=== PATIENT | female | born 1995 | race Caucasian/White ===

== ENCOUNTER 2023-11-07 15:34 | Outpatient (RCR) | payer OTHER, SELFPAY ==
[2023-11-07] MEDS: RHO(D) IMMUNE GLOBULIN 300 MCG/2 ML SYRINGE IM (18:23)
== END 2024-02-05 23:59 | disposition home or self-care (01) ==
LOC: ANHLAB 15:34
PROVIDERS: Visit Provider Obstetrics & Gynecology
DX: Z29.13 Encounter for prophylactic Rho(D) immune globulin (principal); O36.0190 Maternal care for anti-D [Rh] antibodies, unspecified trimester, not applicable or unspecified; Z3A.00 Weeks of gestation of pregnancy not specified
CPT/HCPCS: 36415; 85461; 86850; 86900; 86901; 90384; 96372; J2790

== ENCOUNTER 2024-01-15 06:06 | Inpatient (IN) | payer OTHER, SELFPAY ==
[2024-01-15] VITALS (240 sets, daily range): BP systolic 97–239; BP diastolic 57–192; PULSE 61–267; RESP 16–18; TEMP 36.4–37.1; O2SAT 77–100; BMI 36.3
[2024-01-15 06:48] LABS: Basophils Absolute Auto 0.1 K/mm3 (0.0-0.1); Basophils Percent Auto 0.5 % (0.2-1.2); Eosinophils Absolute Auto 0.1 K/mm3 (0-0.3); Eosinophils Percent Auto 0.6 % (0-4.4); Hematocrit 31.1 % (37.0-47.0); Hemoglobin 9.4 g/dL (12.0-15.0); Immature Granulocyte Absolute 0.08 K/mm3 (0.00-0.031); Immature Granulocyte Percent A 0.9 % (0-0.5); Lymphocytes Absolute Auto 1.74 K/mm3 (0.9-3.2); Lymphocytes Percent Auto 18.6 % (18.3-44.2); Mean Corpuscular HGB Conc 30.2 g/dl (32-36); Mean Corpuscular Hemoglobin 21.5 pg (26-34); Mean Corpuscular Volume 71.2 fl (80-100); Mean Platelet Volume 9.5 fl (7.4-10.4); Monocytes Absolute Auto 0.5 K/mm3 (0.1-0.6); Monocytes Percent Auto 5.7 % (2.6-8.5); Neutrophils Absolute Auto 6.9 K/mm3 (1.3-6.7); Neutrophils Percent Auto 73.7 % (45.5-73.1); Platelet Count Result 347 k/mm3 (150-375); Red Blood Count 4.37 M/mm3 (4.2-5.4); White Blood Count 9.4 K/mm3 (4.5-10.0)
--- NOTE | 2024-01-15 06:48 | LDADM ---
This patient, Parul Ruby, was admitted to Labor/Delivery/Recovery 108 on 01/15/24 at 06:06. Plans for labor, pain management and were discussed with patient. Patient/family oriented to hospital policies and general routines including ID bracelet, bed and alarms, visiting hours, pain management, procedures, bathroom and other care routines, personal items, smoking policy, room service/diet and guest tray routines, infant security routines, and visiting hours. Patient/Family are encouraged to report perceived risks to care and to ask questions if they do not understand what they are told or what they should do. See OBIX for further documentation.
--- NOTE | 2024-01-15 07:11 | WPDANESEPP ---
Anes - Eval Pre Procedure Procedure: labor epidural Date/Time: 01/15/24 07:11 Surgeon: lana wilson Preop Diagnosis: pain during labor Pre Op Diagnosis: IOL Patient Data Age: 28 Gender: F Height: 1.68 m Weight: 102 kg Last Vital Signs Temp 36.6 C 01/15/24 06:47 Pulse 91 01/15/24 06:47 Resp 18 01/15/24 06:47 BP 127/78 01/15/24 06:47 O2 Del Method Room Air 01/15/24 06:47 Allergies Allergy/AdvReac Type Severity Reaction Status Date / Time No Known Allergies Allergy Verified 12/23/23 13:41 Home Medications Medication Instructions Recorded Confirmed Type vits no.126-ferrous fum 1 tablet PO DAILY 12/23/23 12/23/23 History 28 mg iron-folic acid 800 mcg tablet (Classic ) Laboratory Tests 01/15/24 06:16 WBC Pending RBC Pending Hgb Pending Hct Pending MCV Pending MCH Pending MCHC Pending RDW Pending Plt Count Pending MPV Pending Immature Gran % (Auto) Pending Neut % (Auto) Pending Lymph % (Auto) Pending [place] % (Auto) Pending Eos % (Auto) Pending Baso % (Auto) Pending Lymph # (Auto) Pending [place] # (Auto) Pending Eos # (Auto) Pending Baso # (Auto) Pending Abs Immat Gran (auto) Pending Absolute Neuts (auto) Pending Absolute Nucleated RBC Pending Nucleated RBC % Pending RPR Pending HIV 1&2 Ab/P24 Ag 4thGn Pending Patient hx anesthesia problems: none Family hx anesthesia problems: none Results Review: All pre-operative results and documents have been reviewed as part of the pre-operative evaluation. [facility] Past Medical History Medical History (Updated 01/15/24 @ 07:12 by Leanne Mayorga CRNA) IUP (intrauterine ), incidental Obesity (BMI 30-39.9) Family History Family History (Updated 12/23/23 @ 13:49 by Makenna Sethi RN) Other No pertinent family history Social History Social History Smoking status: Never smoker Substance use: never Do You Feel Safe in your Home?: Yes Lack of Transportation: No Lack of Food: Never True Current Housing: I Have Housing Concerned About Future Housing: No Difficulty Paying Gas/Electric Bills: No Difficulty Paying for Meds: No Currently Unemployed: No Education: Associate Degree Difficulty w/ Childcare or Family Care: No Spiritual care concerns: No Exam Day of Procedure 01/15/24 07:11
[2024-01-15 07:14] LABS: Hypochromasia 1+; Platelet Estimate Adequate (Adequate)
[2024-01-15 07:15] LABS: Anisocytosis 1+; Microcytosis 1+ (NORMAL); Schistocytes None Seen
--- NOTE | 2024-01-15 07:38 | PM.IMHP ---
H&P: HPI History of Present Illness Date/Time: 01/15/24 07:38 Chief Complaint: elevated blood pressure at term Narrative: 28-year-old 1 para 0 whose last menstrual period with a level in , EDC is 01/14/2024, confirmed by 10 week ultrasound presents at 40 weeks gestation for induction of labor secondary to elevated blood pressure. She is negative for group B strep in her PIH labs are normal. [facility] Past Medical History Medical History IUP (intrauterine ), incidental Obesity (BMI 30-39.9) Family History Family History Other No pertinent family history Social History Social History Smoking status: Never smoker Substance use: never Do You Feel Safe in your Home?: Yes Lack of Transportation: No Lack of Food: Never True Current Housing: I Have Housing Concerned About Future Housing: No Difficulty Paying Gas/Electric Bills: No Difficulty Paying for Meds: No Currently Unemployed: No Education: Associate Degree Difficulty w/ Childcare or Family Care: No Spiritual care concerns: No Meds Home Medications and Allergies Home Medications Medication Instructions Recorded Confirmed Type vits no.126-ferrous fum 1 tablet PO DAILY 12/23/23 12/23/23 History 28 mg iron-folic acid 800 mcg tablet (Classic ) Allergies Allergy/AdvReac Type Severity Reaction Status Date / Time No Known Allergies Allergy Verified 12/23/23 13:41 Vital Signs Vital Signs - 24 hr 01/15/24 06:47 01/15/24 06:47 Temperature 97.8 F Pulse Rate 91 Respiratory Rate 18 Blood Pressure 127/78 Oxygen Delivery Room Air Exam Const: General: cooperative, healthy appearing and comfortable Nutritional Appearance: overweight Orientation/consciousness: oriented to person, oriented to place and oriented to time HENMT: Head: normal to inspection Resp: Effort & Inspection: normal respiratory effort Cardio: Rate: regular rate Rhythm: regular rhythm Heart sounds: S1 normal heart sound present and S2 normal heart sound present GI: Inspection: normal to inspection ( Gravid soft uterus) : Speculum Exam - Vagina: normal appearance of the vagina Speculum Exam - Cervix: normal appearance of the cervix ( cervix 1 and thick. Attempted AROM. FHTs reassuring) H&P: Results Labs Labs: Short CBC 01/15/24 Range/Units 06:16 WBC 9.4 (4.5-10.0) K/mm3 Hgb 9.4 L (12.0-15.0) g/dL Hct 31.1 L (37.0-47.0) % Plt Count 347 (150-375) k/mm3 Assessment and Plan Assessment and plan (1) IUP (intrauterine ), incidental: Code(s): Z33.1 - state, incidental Status: Acute (2) Gestational hypertension: Code(s): O13.9 - Gestational [-induced] hypertension without significant proteinuria, unspecified trimester Status: Acute Assessment and Plan: medical induction of labor. Spontaneous vaginal delivery is expected. She has an epidural candidate. PIH labs are normal
[2024-01-15 07:39] LABS: HIV 1/2 Ab P24 Ag Result Negative (Negative)
[2024-01-15] MEDS: OXYTOCIN 30 UNITS/NS 500 ML 30 UNITS/500 ML BAG 6 UNITS IV CONT (07:42)
[2024-01-15] MEDS: LACTATED RINGERS 1,000 ML 125 ML IV CONT ×4 (07:42→22:53)
[2024-01-15 10:32] LABS: Rapid Plasma Reagin Non-Reactive (NonReactive)
--- NOTE | 2024-01-15 12:21 | PM.OBPNLAB ---
Pain Control Date/time seen: 01/15/24 12:21 Pain control: tolerating well and epidural Pelvic Exam Dilation (cm): 3 Effacement (%): 50 station: -2 Amniotic membrane status: Leaking Comments: bp ok Contractions Monitor mode: External
--- NOTE | 2024-01-15 16:18 | PM.OBPNLAB ---
Pain Control Date/time seen: 01/15/24 16:18 Pelvic Exam Dilation (cm): 5 Effacement (%): 70 station: -2 Amniotic membrane status: Leaking Contractions Monitor mode: Internal
[2024-01-15] MEDS: CALCIUM CARBONATE (TUMS) 500 MG (200 MG ELEMENTAL) PO (19:00)
[2024-01-15] MEDS: ONDANSETRON INJ 4 MG/2 ML VIAL IV PUSH (20:10)
[2024-01-15] MEDS: FAMOTIDINE 20 MG/2 ML VIAL IV PUSH (22:49)
[2024-01-16] VITALS (59 sets, daily range): BP systolic 92–134; BP diastolic 58–110; PULSE 66–139; RESP 16–20; TEMP 36.5–37.6; O2SAT 80–100
--- NOTE | 2024-01-16 01:15 | PM.OBPRVD ---
OB - Vaginal Delivery Note Procedure Delivery date: 01/16/24 Events: Gestational Hypertension Induction method: AROM Delivery augmentation: Pitocin Delivery monitor: External FHT and Internal FHT Route of delivery: Episiotomy description: None Laceration Description: None Quantitative Blood Loss (ml): 61 Anesthesia type: Epidural Narrative: Patient was admitted for induction of labor in 01/15/2024. His slow 1st stage of labor got to complete daily the she did have a IUPC place with the need to if she had thick meconium. Which she was complete she pushed delivered head spontaneously in the SANTOSH position. Anterior posterior shoulder delivered spontaneously. Cord clamped x2 and cut. Infant passed off the table given Apgars of 8 [id number]. Cord blood was drawn. Placenta delivered intact spontaneously. Twenty of Pitocin placed IV to help firm the uterus. A prospective the vagina and no tears were seen. All sponge, needle, instrument counts were correct. There were no immediate complications [place] Baby Date of : 01/16/24 Time of : 01:04 gender: Male presentation: vertex position: Right Occiput Anterior Placenta delivery description: Spontaneous Cord Vessel Description: 3 Vessels score one minute: 8 score five minutes: 9
--- NOTE | 2024-01-16 01:18 | PM.DS ---
DS: Admitting Diagnosis Discharge Date 01/17/24 <Deepak Carey MD - Last Filed: 01/17/24 12:03> Admitting Diagnosis term /gestational hypertension <Ramakrishna Padron MD - Last Filed: 01/16/24 01:20> DS: Discharge Diagnosis Discharge Diagnosis (1) Gestational hypertension: Code(s): O13.9 - Gestational [-induced] hypertension without significant proteinuria, unspecified trimester <Ramakrishna Padron MD - Last Filed: 01/16/24 01:20> Status: Acute <Ramakrishna Padron MD - Last Filed: 01/16/24 01:20> (2) IUP (intrauterine ), incidental: Code(s): Z33.1 - state, incidental <Ramakrishna Padron MD - Last Filed: 01/16/24 01:20> Status: Acute <Ramakrishna Padron MD - Last Filed: 01/16/24 01:20> DS: Summary Hospital Course Reason for hospitalization: patient was admitted on 01/15/2024 for induction of labor secondary to elevated blood pressures at term. She underwent spontaneous vaginal delivery in the early a.m. of 01/16/2024. <Ramakrishna Padron MD - Last Filed: 01/16/24 01:20> Hospital Course: Patient's hospital course was remarkable. She remained afebrile. She was up, voiding the difficulty, eating regular diet, ambulating, generally without complaints. <Ramakrishna Padron MD - Last Filed: 01/16/24 01:20> Time Spent with Patient Time attestation: Total time spent providing and/or coordinating discharge services: <Ramakrishna Padron MD - Last Filed: 01/16/24 01:20> Exam Const: General: cooperative, healthy appearing and comfortable <Ramakrishna Padron MD - Last Filed: 01/16/24 01:20> Nutritional Appearance: average body habitus <Ramakrishna Padron MD - Last Filed: 01/16/24 01:20> Orientation/consciousness: oriented to person, oriented to place and oriented to time <Ramakrishna Padron MD - Last Filed: 01/16/24 01:20> Resp: Effort & Inspection: normal respiratory effort <Ramakrishna Padron MD - Last Filed: 01/16/24 01:20> Cardio: Rate: regular rate <Ramakrishna Padron MD - Last Filed: 01/16/24 01:20> Rhythm: regular rhythm <Ramakrishna Padron MD - Last Filed: 01/16/24 01:20> Heart sounds: S1 normal heart sound present and S2 normal heart sound present <aRmakrishna Padron MD - Last Filed: 01/16/24 01:20> GI: Inspection: normal to inspection <Ramakrishna Padron MD - Last Filed: 01/16/24 01:20> DS: Data Data Completed and Pending Labs on day of discharge: Labs from last 24 hours 01/15/24 06:16 WBC 9.4 RBC 4.37 Hgb 9.4 L Hct 31.1 L MCV 71.2 L MCH 21.5 L MCHC 30.2 L RDW 17.0 H Plt Count 347 MPV 9.5 Immature Gran % (Auto) 0.9 H Neut % (Auto) 73.7 H Lymph % (Auto) 18.6 [place] % (Auto) 5.7 Eos % (Auto) 0.6 Baso % (Auto) 0.5 Lymph # (Auto) 1.74 [place] # (Auto) 0.5 Eos # (Auto) 0.1 Baso # (Auto) 0.1 Abs Immat Gran (auto) 0.08 H Absolute Neuts (auto) 6.9 H Absolute Nucleated RBC 0.000 Nucleated RBC % 0.0 Platelet Estimate Adequate Hypochromasia 1+ Anisocytosis 1+ Microcytosis 1+ Schistocytes None seen RPR Non-reactive HIV 1&2 Ab/P24 Ag 4thGn Negative Blood Type O Negative Antibody Screen Negative <Ramakrishna Padron MD - Last Filed: 01/16/24 01:20> Discharge Plan Discharge Attending physician on discharge: Ramakrishna Augustin <Ramakrishna Padron MD - Last Filed: 01/16/24 01:20> Ramakrishna Augustin <Deepak Carey MD - Last Filed: 01/17/24 12:03> Discharging Clinician: Ramakrishna Augustin <Ramakrishna Padron MD - Last Filed: 01/16/24 01:20> Ramakrishna Augustin. <Deepak Carey MD - Last Filed: 01/17/24 12:03> Patient Disposition: Home, Self-Care <Ramakrishna Padron MD - Last Filed: 01/16/24 01:20> Activity: may shower, no straining, may drive after 2 weeks and pelvic rest <Ramakrishna Padron MD - Last Filed: 01/16/24 01:20> may shower
[2024-01-16] MEDS: OXYTOCIN 30 UNITS/NS 500 ML 30 UNITS/500 ML BAG 125 UNITS IV CONT (01:32)
[2024-01-16] MEDS: ACETAMINOPHEN 325 MG TABLET 650 MG PO ×2 (02:21→17:17)
[2024-01-16] MEDS: IBUPROFEN 600 MG TABLET PO ×3 (02:21→20:53)
--- NOTE | 2024-01-16 03:24 | OBPPTRN ---
Patient transferred to post room #278 via wheelchair. Support person present. Oriented to unit, room, information board, rooming in, admission packet and security measures. Patient verbalizes understanding.
--- NOTE | 2024-01-16 08:45 | PC.NURSE ---
Called to patient room to assist with . Baby was just circumcised and is sleepy. We unwrapped him and tried to wake him. We placed him skin to skin in football hold. He did open his mouth a few times but never latched successfully. Encouraged mother to try again in half an hour. She can keep him skin to skin or wrap him and let him sleep in the crib. Mother agrees and will call for further assistance as needed. Reported to primary RN.
[2024-01-16] MEDS: POLYSACCHARIDE IRON COMPLEX 150 MG CAPSULE PO (08:52)
[2024-01-16] MEDS: MULTIVIT/MIN/PREN/FOL AC/IRON TABLET 1 TAB PO (08:52)
[2024-01-16] MEDS: DOCUSATE SODIUM 100 MG CAPSULE PO ×2 (08:52→17:17)
--- NOTE | 2024-01-16 11:40 | PC.NURSE ---
Went to check on patient feedings and they were getting ready to attempt a again. Baby was more alert this time, we tried for awhile to latch baby to the left breast, but he would not suck and could not maintain the latch. Mom feels like baby latches better on the right, so we moved him to cradle hold on the right breast. After several attempts, we were able to get a deep latch and baby was sucking consistently. Encouraged mother to feed on the left breast first next time, to call if she needs assistance switching sides, or if baby comes off the breast and she can't get him back on by herself. Mother verbalized understanding. Reported to Primary RN.
--- NOTE | 2024-01-16 16:24 | PC.NURSE ---
1500. Attempted to help mom latch baby boy at this time. Baby Boy very sleepy, reluctant to latch, with no feeding ques. Reviewed early feeding ques with mom and dad, and the importance of S2S in the first 24 hours. Encouraged mom to do S2S and call out when she sees next feeding ques and if she would like help lactching .
[2024-01-17 04:26] VITALS: BP 108/70; PULSE 88; RESP 18; TEMP 36.5; O2SAT 99
[2024-01-17 05:15] LABS: Hematocrit 26.9 % (37.0-47.0); Hemoglobin 7.9 g/dL (12.0-15.0)
--- NOTE | 2024-01-17 07:28 | WPDANLDPN2 ---
Anes-Prog Note L&D Date/Time: 01/17/24 07:28 Comfortable throughout: labor and delivery Neuraxial method: epidural Epidural/Spinal procedure site: clean & non-tender Neuro status: Neuro function grossly intact. Cardiovascular status: normal Respiratory status: normal Airway patency: baseline Mental status: baseline Post-Op hydration status: normal Vital Signs: Last Vital Signs Temp 36.5 C 01/17/24 04:26 Pulse 88 01/17/24 04:26 Resp 18 01/17/24 04:26 BP 108/70 01/17/24 04:26 Pulse Ox 99 01/17/24 04:26 O2 Del Method Room Air 01/15/24 06:47 Pain score (VAS): 1 I/O: Intake & Output 01/16/24 01/16/24 01/17/24 15:59 23:59 07:59 Intake Total 920 500 Output Total 350 500 450 Balance -350 420 50 Post-procedural complaints: none Patient feedback: Patient satisfied with anesthetic care.
[2024-01-17 08:40] VITALS: BP 117/63; PULSE 88; RESP 16; TEMP 36.5; O2SAT 100
[2024-01-17] MEDS: MULTIVIT/MIN/PREN/FOL AC/IRON TABLET 1 TAB PO (08:42)
[2024-01-17] MEDS: POLYSACCHARIDE IRON COMPLEX 150 MG CAPSULE PO (08:42)
[2024-01-17] MEDS: DOCUSATE SODIUM 100 MG CAPSULE PO (08:43)
[2024-01-17] MEDS: IBUPROFEN 600 MG TABLET PO (08:43)
--- NOTE | 2024-01-17 09:30 | PC.NURSE ---
Mother verbalizes she is able to independently latch with appropriate positioning and alignment. She denies any nipple discomfort and is responsively . Infant is currently meeting outcomes for weight, output, jaundice, blood sugar and feeding frequencies of 8-12 times in 24 hours. Mother declines any additional assistance or education at this time. Mother is encouraged to call for assistance if her infant doesn?t latch, pain with latching, questions or concerns. Mother voiced understanding of information shared along with the mom/baby guide for an additional resource. Mother is also pumping after feeds and supplementing with pumped milk. Instructions given on cleaning, care, usage, that there should be no pain, pumping schedule for milk production, collection, and storage of human milk. Patient was assessed for correct placement, flange size, to pump for comfort and nipple stretching/stimulation for adequate milk production every 3 hours (8 times in 24 hours) 1-2 times at night. Parents are encouraged to record the pumping schedule on the feeding sheet.?Mother voiced understanding of the education shared along with mom/baby guide and the pump measurement, flange fit handout for additional resource information. Reported to the Primary RN.
--- NOTE | 2024-01-17 12:00 | PM.OBPNVD ---
OB - PN: Subj Subjective Date/time seen: 01/17/24 12:00 Narrative: Pain OK. Would like to go home. OB - PN: Obj Data Labs 01/17/24 04:27 Labs: Laboratory Results - last 24 hr 01/17/24 04:27 Hgb 7.9 L Hct 26.9 L OB - PN A/P Plan day: 1 Comments: A: PPD#1, doing well. P: Home to f/u 6 weeks. Exam Psych: Other: AVSS ABD soft, nontender, fundus firm EXT nontender
--- NOTE | 2024-01-17 19:06 | PC.NURSE ---
1100 Patient viewed the discharge video Mother & Baby Care, The First Two Weeks . Patient was given the opportunity and encouraged to ask questions. Patient verbalized understanding of information shared and has been given the mother/baby guide for home reference.
[2024-01-19 13:47] VITALS: BP 121/85; PULSE 102; RESP 18; TEMP 36.7; O2SAT 99
== END 2024-01-17 16:05 | disposition home or self-care (01) | DRG 560 ==
LOC: ANHLDR 01-16 01:20 → ANHOB2 01-16 03:47
PROVIDERS: Admitting Provider Obstetrics & Gynecology; Visit Provider Obstetrics & Gynecology
DX: O13.4 Gestational [pregnancy-induced] hypertension without significant proteinuria, complicating childbirth (principal); O77.0 Labor and delivery complicated by meconium in amniotic fluid; Z3A.40 40 weeks gestation of pregnancy; Z37.0 Single live birth
CPT/HCPCS: 36415; 85014; 85018; 85025; 86592; 86703; 86850; 86900; 86901; A9270; G0432; J2405; J2590; J2795; J7120

== ENCOUNTER 2024-12-21 13:08 | Outpatient (CLI) | payer BC, MEDICAID, SELFPAY ==
--- OUTSIDE RECORDS SUMMARY | 2024-12-21 13:14 | XMS_ITS | Clinical Summary ---
Author Organization [facility] Address [address] [place] [address] Care Team Providers Care Reconditioner Name Role Phone Unavailable Primary Care Provider Unavailabl e Source Comments [facility],non-owned Affiliates and Associated Physician Practices is amultiple site organization consisting of ambulatory clinics and hospital sitesin [place], [place], [place] and [place]. This disclosure is being madepursuant to the Care Everywhere program and may not contain all information available regarding this patient. Last updated 18.[facility] [employer] Social History Tobacco Use Types Packs/Day Years Used Date Smoking Tobacco: Never Assessed Comments Unknown Sex and Gender Information Value Date Recorded Sex Assigned at Not on file Legal Sex Female 11:30 AM CDT Gender Identity Not on file Sexual Orientation Not on file Plan of Treatment Health Maintenance Due Date Last Done Comments HIV SCREENING 2012 HEPATITIS C SCREENING 05/16/2015 DTAP/TDAP/TD VACCINES (1 - Tdap) 2016 HEPATITIS B VACCINE (1 of 3 - 19+ 3-dose series) 2016 PAP SMEAR 2018 COVID-19 VACCINE ( - 2023-2 5 season) 2024 HPV VACCINE (1 - 3-dose SCDM series) 2024 DEPRESSION SCREENING 06/02/2024 INFLUENZA VACCINE (#1) 2025 ZOSTER VACCINE (1 of 2) 2047 HIB VACCINE Aged Out No longer eligi ble based on patient's age to complete this topic MENINGOCOCCAL (Group B) VACC INE SHARED DECISION-MAKING Aged Out No longer eligibl e based on patient's age to complete this topic MENINGOCOCCAL GROUPS A/C/Y/W VACCINE Aged Out No longer eligible b ased on patient's age to complete this topic PNEUMOCOCCAL VACCINE Aged Out No long er eligible based on patient's age to complete this topic
--- OUTSIDE RECORDS SUMMARY | 2024-12-21 13:14 | XMS_ITS ---
Author Organization Unknown Address [address], [place] [phone] Phone Care Team Providers Care Green Inspector Name Role Phone MONICA SY Registered Nurse Unavailable MAGNO BRANHAM Attending Unavailable LOGAN LAUREN Primary Unavailable Results URINALYSIS - Collect Date/Ti me: 12/19/2024 19:09 LEOPOLDO DIAZ NORRIS [employer] O ID: [id number] [address] [place], [place], [id number] LOINC: Test Value Unit Reference Range Code Code System Flag SPEC SOURCE: Random COLOR Yellow NORMAL: Straw CLARITY Clear NORMAL: Clear SPEC GRAVITY 1.020 1.005 - 1.020 pH 7.0 5.5 - 7.5 GLUCOSE Negative NORMAL: Negative BILIRUBIN Negative NORMAL: Negative KETONE Negative NORMAL: Negative PROTEIN 1+ NORMAL: Negative A NITRITE Negative NORMAL: Negative BLOOD 3+ NORMAL: Negative A LEUK EST Negative NORMAL: Negative UROBILINOGEN 0.2 0.2 - 1.0 mg/dL MICROSCOPIC See Below WBC 0-2/hpf NORMAL: None Seen RBC TNTC NORMAL: None Seen EPITHELIAL 5-10/lpf NORMAL: None Seen BACTERIA Trace/hpf NORMAL: None Seen A MUCOUS 1+/lpf NORMAL: None Seen A MISC NONE CASTS None Seen CRYSTALS None Seen SENT FOR C&S NO HCG QUANT - Collect Date/Eliceo e: 12/19/2024 19:06 LEOPOLDO EMILY [place] O ID: [id number] [address] [place], [place], [id number] LOINC: Test Value Unit Reference Range Code Code System Flag BETA HCG 53.65 NORMAL: 0 - 5 mIU/mL Social History Type Status Start Date End Date Code Code Syst em Sex Female Vital Signs Vital Sign Value Unit [place] Value [place] Unit Date/Time Recent/Initial? Code Code System Body Mass Index 30.67 kg/m2 12/19/2024 18:45 Initial 18844 -5 LOINC Systolic Blood Pressure 126 mm[Hg] 12/19/2024 21:10 Most Recent 8480- 6 LOINC Diastolic Blood Pressure 81 mm[Hg] 12/19/2024 21:10 Most Recent 8462- 4 LOINC Systolic Blood Pressure 146 mm[Hg] 12/19/2024 18:45 Initial 8480- 6 LOINC Diastolic Blood Pressure 97 mm[Hg] 12/19/2024 18:45 Initial 8462- 4 LOINC Body Surface Area 2.00 m2 12/19/2024 18:45 Initial 3140- 1 LOINC Height 167.640 0 cm 66.00 in 12/19/2024 18:45 Initial 8302- 2 LOINC O2 Saturation 100 % 2024 21:10 Most Recent 06100 -5 LOINC O2 Saturation 96 % 2024 18:45 Initial 10671 -5 LOINC Pulse 83.0 /min 12/19/2024 21:10 Most Recent 8867- 4 LOINC Pulse 86.0 /min 12/19/2024 18:45 Initial 8867- 4 LOINC Respiration 18 /min 12/20/19 21:10 Most Recent 9279- 1 LOINC Respiration 18 /min 12/20/19 18:45 Initial 9279- 1 LOINC Temperature 36.7 Emperatriz 98.0 F 12/20/19 18:45 Initial 8310- 5 LOINC Weight 86.18 kg 190.00 lbs 12/19/2024 18:45 Initial 75634 -7 LOINC Medications No Active Medications Hospital Discharge Instructions Should you have any questions prior to discharge, please contact a member of your healthcare team. If you have left the hospital and have any questions, please contact your primary care physician. Reason For Referral No Data Found Problems Problem Start Date Resolved Date Status Code Code System No Active Problems active S NOMED-CT Allergies and Adverse Reactions Allergy Substance Reaction Severity Start Date Concern Status Co de Code System No Known Drug Allergies Active [id number] SNOMED-CT Plan of Treatment No Data Found Personal Care Team Section
[2024-12-21 14:59] LABS: Beta HCG Quantitative 25.14 mIU/ML
== END 2024-12-21 13:09 | disposition home or self-care (01) ==
LOC: ANHLAB 13:13
PROVIDERS: PCP Family Medicine; Visit Provider Obstetrics & Gynecology
DX: O02.1 Missed abortion (principal); Z3A.00 Weeks of gestation of pregnancy not specified
CPT/HCPCS: 36415; 84702

== ENCOUNTER 2024-12-30 11:10 | Outpatient (CLI) | payer BC, SELFPAY ==
--- OUTSIDE RECORDS SUMMARY | 2024-12-30 11:18 | XMS_ITS | Clinical Summary ---
Author Organization [facility] Address [address] [place] [address] Care Team Providers Care Coordinate Measuring Machine Technician Name Role Phone Unavailable Primary Care Provider Unavailabl e Source Comments [facility],non-owned Affiliates and Associated Physician Practices is amultiple site organization consisting of ambulatory clinics and hospital sitesin [place], [place], [place] and [place]. This disclosure is being madepursuant to the Care Everywhere program and may not contain all information available regarding this patient. Last updated 18.[facility] [employer] Social History Tobacco Use Types Packs/Day Years [...]
[2024-12-30 12:16] LABS: Beta HCG Quantitative < 2.39 mIU/ML
== END 2024-12-30 11:11 | disposition home or self-care (01) ==
LOC: ANHLAB 11:12
PROVIDERS: PCP Family Medicine; Visit Provider Obstetrics & Gynecology
DX: O03.4 Incomplete spontaneous abortion without complication (principal)
CPT/HCPCS: 36415; 84702